=== PATIENT | female | born 1930 | race Caucasian/White ===

== ENCOUNTER 2017-09-26 22:19 | Emergency (ER) | payer MEDICAID, MEDICARE ==
[~2017-09-26] VITALS: Ht 157.5 cm; Wt 45.0 kg
[~2017-09-26 22:19] MED LIST: IBUP100S30 PO; KPHOS250 PO; LOVA20TA PO; TRAM-388 PO; XANA1TAB6 PO
[2017-09-26 22:30] VITALS: BP 187/79; PULSE 74; RESP 20; TEMP 97.2; O2SAT 99
[2017-09-26] MEDS ORDERED: VENTAER INH (22:45)
[2017-09-26] MEDS ORDERED: LOVA40TA PO (22:45)
[2017-09-26] MEDS ORDERED: VITA1000 PO (22:45)
[2017-09-26] MEDS ORDERED: ALPR.5 PO (22:45)
[2017-09-26] MEDS ORDERED: ZANTTAB11 PO (22:45)
--- NOTE | 2017-09-27 00:22 | PD ---
HPI Chief Complaint: Edema Time Seen by Provider: 00:18 Travel History International Travel<30 days: No Contact w/Intl Traveler<30days: No Traveled to known affect area: No History of Present Illness HPI The patient is an 87-year-old female that noticed he has some minimal swelling on her feet. She is wearing socks with a tight constrictive band. She had this problem several weeks ago. She does not have any edema of the leg. She denies any shortness of breath. PFSH Past Medical History Arthritis: Yes (RIGHT KNEE) Asthma: No Autoimmune Disease: No Blood Disorders: No Anxiety: Yes (Xanax daily) Depression: No Heart Rhythm Problems: No Cancer: No Cardiovascular Problems: Yes (did tests ..notmal) High Cholesterol: Yes Chemotherapy: No Chest Pain: No Congestive Heart Failure: No COPD: Yes (continues to smoke) Cerebrovascular Accident: No Diabetes: No Diminished Hearing: Yes (HEARING AIDS BILAT) Endocrine: No Gastrointestinal Disorders: Yes GERD: No Glaucoma: No Genitourinary: No Headaches: No Hepatitis: No Hiatal Hernia: No Hypertension: Yes (PT DENIES) Immune Disorder: No Kidney Stones: No Musculoskeletal: Yes Neurologic: Yes Psychiatric: Yes (anxiety) Reproductive: No Respiratory: Yes (COPD) Migraines: No Myocardial Infarction: No Radiation Therapy: No Renal Failure: No Seizures: No Sleep Apnea: No Thyroid Disease: No Ulcer: No Tetanus Vaccination: Unknown Influenza Vaccination: No ?: Not Menopausal: Yes : 2 Para: 2 Past Surgical History Abdominal Surgery: Yes (HYSTERECTOMY, APPY AND RT HERNIA REPAIR) AICD: No Appendectomy: Yes Arteriovenous Shunt: No Cardiac Surgery: No Cholecystectomy: No Ear Surgery: No Endocrine Surgery: No Eye Surgery: Yes (cataract surgery BILAT) Genitourinary Surgery: No Gynecologic Surgery: Yes (HYSTERECTOMY) Hysterectomy: Yes Insulin Pump: No Joint Replacement: No Oral Surgery: No Pacemaker: No Thoracic Surgery: No Tonsillectomy: Yes Other Surgery: Yes Social History Alcohol Use: No Tobacco Use: Yes (3/4 pack, greater than 60 pack year history) Substance Use: No Allergies-Medications (Allergen,Severity, Reaction): Coded Allergies: No Known Allergies (Verified Adverse Reaction, Unknown, 09/26/17) Reported Meds & Prescriptions Reported Meds & Active Scripts Active Reported Zantac 75 (Ranitidine HCl) 75 Mg Tablet 1 Tab PO BID PRN Ventolin Hfa 18 GM Inh (Albuterol Sulfate) 90 Mcg/Act Aer 2 Puff INH Q4H PRN Vitamin D-1000 (Cholecalciferol) 1,000 Unit Tab 2,000 Units PO BID Lovastatin 40 Mg Tab 40 Mg PO DAILY Xanax (Alprazolam) 0.5 Mg Tab 0.5 Mg PO BID PRN Review of Systems Except as stated in HPI: all other systems reviewed are Neg Physical Exam Narrative GENERAL: Well-nourished, well-developed patient in no apparent distress, specifically no respiratory distress. Her vital signs show blood pressure 187/ 79 but are otherwise normal. SKIN: Focused skin assessment warm/dry. HEAD: Normocephalic. EYES: No scleral icterus. No injection or drainage. NECK: Supple, trachea midline. No JVD or lymphadenopathy. CARDIOVASCULAR: Regular rate and rhythm without murmurs, gallops, or rubs. RESPIRATORY: Breath sounds equal bilaterally. No accessory muscle use. GASTROINTESTINAL: Abdomen soft, non-tender, nondistended. MUSCULOSKELETAL: No cyanosis, and she has good dorsalis pedis pulses bilaterally. There is some swelling below the bands of the socks. I took the socks off and already the swelling is gone down. Homans sign is negative and there is no caffeine tenderness resident or cord palpated in the calf. BACK: Nontender without obvious deformity. No CVA tenderness. Data Data Last Documented VS Vital Signs Date Time Temp Pulse Resp B/P (MAP) Pulse Ox O2 Delivery O2 Flow Rate FiO2 09/26/17 22:30 97.2 74 20 187/79 (115) 99 MDM Medical Decision Making Medical Screen Exam Complete: Yes Emergency Medical Condition: Yes Medical Record Reviewed: Yes Differential Diagnosis Hypoproteinemia-unlikely, congestive heart failure, constrictive effect of socks. Narrative Course The patient's swelling, which is very minimal, appears from the constricting affect of the elastic band on the socks. She will elevate her feet with a socks off. She will not wear socks with constricting bands. Diagnosis Primary Impression: Bilateral swelling of feet Additional Instructions: As we discussed, elevate your feet above your heart and avoid socks with tight constricting elastic bands. Disposition: 01 DISCHARGE HOME Condition: Stable Octavio Mclaughlin MD Sep 27, 2017 00:22
[2017-09-27 00:30] VITALS: BP 170/91
== END 2017-09-27 00:35 | disposition home or self-care (01) ==
LOC: PHED 22:19
DX: R22.43 Localized swelling, mass and lump, lower limb, bilateral (principal); J44.9 Chronic obstructive pulmonary disease, unspecified; E78.00 Pure hypercholesterolemia, unspecified; F41.9 Anxiety disorder, unspecified; F17.210 Nicotine dependence, cigarettes, uncomplicated; Z79.899 Other long term (current) drug therapy
CPT/HCPCS: 99281

== ENCOUNTER 2018-03-18 05:31 | Inpatient (IN) ==
[2018-03-18] MEDS ORDERED: Metoprolol Inj 5 MG/5 ML Vial IV.PUSH ONE (06:03)
[2018-03-18 06:26] LABS: Baso % (Auto) 0.3 % (0.0-2.0); Eos % (Auto) 0.1 % (0.0-4.0); Hematocrit 36.8 % (35.0-46.0); Hemoglobin 12.1 gm/dL (11.6-15.3); Lymph # (Auto) 0.5 th/mm3 (1.0-4.8); Lymph % (Auto) 3.9 % (9.0-44.0); Mean Corpuscular HGB Conc 32.8 % (32.0-36.0); Mean Corpuscular Hemoglobin 27.9 pg (27.0-34.0); Mean Corpuscular Volume 85.2 fL (80.0-100.0); Mean Platelet Volume 8.1 fL (7.0-11.0); Mono % (Auto) 8.9 % (0.0-8.0); Neut # (Auto) 10.1 th/mm3 (1.8-7.7); Neut % (Auto) 86.8 % (16.0-70.0); Platelet Count 209 th/mm3 (150-450); Red Blood Count 4.32 mil/mm3 (4.00-5.30); Red Cell Distribution Width 14.9 % (11.6-17.2); White Blood Count 11.6 th/mm3 (4.0-11.0)
--- NOTE | 2018-03-18 06:35 | ED ---
HPI General Chief complaint: Chest Pain Stated complaint: Chest Pain/Evac Time Seen by Provider: 03/18/18 05:38 History of Present Illness HPI narrative: Patient is an 87-year-old female presents emergency department for evaluation of squeezing chest pain center of her chest started about 130 this morning. No radiation, no shortness of breath no dizziness patient states she has a history of left bundle branch block, no history of atrial fibrillation. He saw a otolaryngology rep once over 5 years ago and has not followed up with them since. He does have a history of COPD and was told that she had a small lesion on her lung which they are just watching. She is a current every day smoker. States is never had a cardiac catheterization before. She is not on anticoagulation. States after. They noted that she was in A. fib RVR, blood pressures in the low 100s systolically prior to arrival and she received 325 mg of aspirin prior to arrival. Related Data Home Medications Medication Instructions Recorded Confirmed albuterol sulfate [Ventolin HFA] 2 puff INHALATION Q6H PRN 03/18/18 03/18/18 alprazolam [Xanax] 0.5 mg PO BID PRN 03/18/18 03/18/18 ranitidine HCl [Zantac] 150 mg PO DAILY 03/18/18 03/18/18 Allergies Allergy/AdvReac Type Severity Reaction Status Date / Time No Known Allergies Unknown Uncoded 09/26/17 22:30 Review of Systems Except as stated in HPI: all other systems reviewed are negative [facility] Medical History Medical History Afib (Acute) Anxiety (Acute) Bundle branch block, left (Acute) COPD (chronic obstructive pulmonary disease) (Acute) GERD (gastroesophageal reflux disease) (Acute) Hiatal hernia (Acute) Surgical History Surgical History H/O abdominal hysterectomy (Acute) H/O right knee surgery (Acute) Social History Social History Substance History: No History of Abuse Second Hand Smoke Exposure: No Smoking Status: Current every day smoker Tobacco Type: Cigarettes How Often Do You Have a Drink Containing Alcohol: Never [facility] within the Last 8 Weeks: No Recent Out of Country Travel within the Last 8 Weeks: No Immunization History Tetanus Immunization: >5 Years Hx Influenza Vaccine This Season: No Exam Narrative Exam Narrative: GENERAL: Well-developed thin elderly female in no obvious distress. Quite pleasant. Smells of cigarette smoke. SKIN: Focused skin assessment warm/dry. HEAD: Atraumatic. Normocephalic. EYES: Pupils equal and round. No scleral icterus. No injection or drainage. ENT: No nasal bleeding or discharge. Mucous membranes pink and moist. NECK: Trachea midline. No JVD. CARDIOVASCULAR: Irregularly irregular with tachycardia. 2+ bilateral equal pulses in all 4 extremities. No murmur appreciated. RESPIRATORY: No accessory muscle use. Clear to auscultation. Breath sounds equal bilaterally. GASTROINTESTINAL: Abdomen soft, non-tender, nondistended. Hepatic and splenic margins not palpable. MUSCULOSKELETAL: No obvious deformities. No clubbing. No cyanosis. There is mild edema bilateral lower extremities. NEUROLOGICAL: Awake and alert. No obvious cranial nerve deficits. Motor grossly within normal limits. Normal speech. PSYCHIATRIC: Appropriate mood and affect; insight and judgment normal. Course Consultations Consultation #1: Dr. Workman Time: 07:54 Initial Documented Vital Signs Pulse Rate 125 H 03/18/18 05:34 Respiratory Rate 20 03/18/18 05:34 Blood Pressure 147/91 H 03/18/18 05:34 Pulse Oximetry 98 03/18/18 05:34 Last Documented Vital Signs Pulse Rate 61 03/18/18 06:35 Respiratory Rate 18 03/18/18 06:35 Blood Pressure 175/80 H 03/18/18 06:35 Pulse Oximetry 97 03/18/18 06:35 Sign Out Sign Out Data: Patient Sign Out occurred on 03/18/18 at 07:06. Patient's care was discussed, and care was transferred from Michael Bower MD to Laurel Perdomo. Sign Out Comment: Discussed with Dr. Perdomo at 0700 shift change. Follow-up laboratory analysis and disposition appropriately. Last updated by Michael Bower MD at 03/18/18 06:46 Post-Handoff Eval: Patient's labs are all now back. Her diagnoses include chest pain, A. fib with RVR controlled with Lopressor, mild CHF and mildly elevated troponin. She is being admitted to the hospitalist service for further evaluation and treatment. Medical Decision Making MDM Narrative Medical decision making narrative: Patient room to the emergency department, has a history of left bundle branch block and currently she is in A. fib RVR with heart rates in the 120s as high as 160. Her chest pain currently is resolved but she describes a very squeezing feeling. She denies a history of atrial fibrillation or congestive heart failure in the past. She was given a dose of Lopressor 2.5 mg IV which controlled her heart rate, blood pressure tolerated well. Chest x-ray does show some mild vascular congestion and edema, does appear to be pleural effusions bilaterally. She was given 20 mg of Lasix as a start. EKG does show atrial fibrillation with left bundle branch block. Does not meet acute STEMI criteria. Differential Diagnosis Differential Diagnosis: A. fib RVR, CHF, ACS, RI. Lab Data Result diagrams: 03/18/18 06:07 03/18/18 06:07 Lab Results 03/18/18 03/18/18 03/18/18 Range/Units 06:00 06:07 06:07 WBC 11.6 H (4.0-11.0) th/mm3 RBC 4.32 (4.00-5.30) mil/mm3 Hgb 12.1 (11.6-15.3) gm/dL Hct 36.8 (35.0-46.0) % MCV 85.2 (80.0-100.0) fL MCH 27.9 (27.0-34.0) pg MCHC 32.8 (32.0-36.0) % RDW 14.9 (11.6-17.2) % Plt Count 209 (150-450) th/mm3 MPV 8.1 (7.0-11.0) fL Neut % (Auto) 86.8 H (16.0-70.0) % Lymph % (Auto) 3.9 L (9.0-44.0) % [place] % (Auto) 8.9 H (0.0-8.0) % Eos % (Auto) 0.1 (0.0-4.0) % Baso % (Auto) 0.3 (0.0-2.0) % Neut # (Auto) 10.1 H (1.8-7.7) th/mm3 Lymph # (Auto) 0.5 L (1.0-4.8) th/mm3 [place] # (Auto) 1.0 H (0.0-0.9) th/mm3 Eos # (Auto) 0.0 (0.0-0.4) th/mm3 Baso # (Auto) 0.0 (0.0-0.2) th/mm3 WBC Differential . Differential Comment Auto diff final PT 10.0 (9.8-11.6) sec INR 1.0 Ratio APTT 19.1 L (24.3-30.1) sec Sodium (136-145) meq/L Potassium (3.5-5.1) meq/L Chloride (98-107) meq/L Carbon Dioxide (21.0-32.0) meq/L Anion Gap (5-15) meq/L BUN (7-18) mg/dL Creatinine (0.50-1.00) mg/dL Estimated GFR (>89) mL/min Random Glucose (74-106) mg/dL Calcium (8.5-10.1) mg/dL Total Bilirubin (0.2-1.0) mg/dL AST (15-37) U/L ALT (10-53) U/L Alkaline Phosphatase (45-117) U/L Troponin I (0.02-0.05) ng/mL B-Natriuretic Peptide 228 H (0-100) pg/mL Total Protein (6.4-8.2) g/dL Albumin (3.4-5.0) g/dL 03/18/18 Range/Units 06:07 WBC (4.0-11.0) th/mm3 RBC (4.00-5.30) mil/mm3 Hgb (11.6-15.3) gm/dL Hct (35.0-46.0) % MCV (80.0-100.0) fL MCH (27.0-34.0) pg MCHC (32.0-36.0) % RDW (11.6-17.2) % Plt Count (150-450) th/mm3 MPV (7.0-11.0) fL Neut % (Auto) (16.0-70.0) % Lymph % (Auto) (9.0-44.0) % [place] % (Auto) (0.0-8.0) % Eos % (Auto) (0.0-4.0) % Baso % (Auto) (0.0-2.0) % Neut # (Auto) (1.8-7.7) th/mm3 Lymph # (Auto) (1.0-4.8) th/mm3 [place] # (Auto) (0.0-0.9) th/mm3 Eos # (Auto) (0.0-0.4) th/mm3 Baso # (Auto) (0.0-0.2) th/mm3 WBC Differential Differential Comment PT (9.8-11.6) sec INR Ratio APTT (24.3-30.1) sec Sodium 140 (136-145) meq/L Potassium 3.5 (3.5-5.1) meq/L Chloride 100 (98-107) meq/L Carbon Dioxide 33.1 H (21.0-32.0) meq/L Anion Gap 7 (5-15) meq/L BUN 31 H (7-18) mg/dL Creatinine 1.19 H (0.50-1.00) mg/dL Estimated GFR 43 L (>89) mL/min Random Glucose 112 H (74-106) mg/dL Calcium 8.9 (8.5-10.1) mg/dL Total Bilirubin 0.5 (0.2-1.0) mg/dL AST 66 H (15-37) U/L ALT 87 H (10-53) U/L Alkaline Phosphatase 95 (45-117) U/L Troponin I 0.09 H (0.02-0.05) ng/mL B-Natriuretic Peptide (0-100) pg/mL Total Protein 6.6 (6.4-8.2) g/dL Albumin 3.1 L (3.4-5.0) g/dL Imaging Data Radiologist's impression: Chest X-Ray 03/18/18 05:37 CONCLUSION: 1. Underlying emphysema and scarring. 2. Mild cardiomegaly Discharge Plan Discharge Disposition Patient Disposition: 30 Still Patient Discharge Details Diagnosis: Chest pain, Atrial fibrillation with RVR, Congestive heart failure, Elevated troponin Physicians Team ED Provider: Laurel Perdomo Primary Care Provider: UNKNOWN, Rxs /Orders / Referrals /Forms Prescriptions: No Action alprazolam [Xanax] 0.5 mg Tablet 0.5 mg PO BID PRN (Reason: Anxiety) RF: 0 ranitidine HCl [Zantac] 150 mg Tablet 150 mg PO DAILY RF: 0 albuterol sulfate [Ventolin HFA] 90 mcg/actuation Hfa Aerosol Inhaler 2 puff INHALATION Q6H PRN (Reason: Shortness Of Breath) RF: 0 Discharge Instructions Patient Printed Instructions: Chest Pain (ED) Discharge Interventions Interventions: Vital Signs Last Done: 03/18/18 06:35 Status ED Status: With Doctor
--- NOTE | 2018-03-18 06:39 | XR ---
EXAM DATE: 03/18/2018 6:16 AM EDT AGE/SEX: 87 years / Female INDICATIONS: Chest pain. CLINICAL DATA: This is the patient's initial encounter. Patient reports that signs and symptoms have been present for 1 day and indicates a pain score of 5/10. MEDICAL/SURGICAL HISTORY: Non-responsive. Non-responsive. COMPARISON: [facility], XR CHEST PA AND LAT, 11/17/2014. . FINDINGS: A single AP erect portable view of the chest was obtained and demonstrates mild cardiomegaly. No conf luent infiltrates or effusions are identified. There is underlying emphysema and scarring. Atheroscle rotic changes present in the aorta. The bony thorax is intact. CONCLUSION: 1. Underlying emphysema and scarring. 2. Mild cardiomegaly Electronically signed by: Greg Marina MD 03/18/2018 6:38 AM EDT
[2018-03-18 06:41] LABS: Activated Partial Thrombo Time 19.1 sec (24.3-30.1)
[2018-03-18 06:57] LABS: Alkaline Phosphatase 95 U/L (45-117); Total Protein 6.6 g/dL (6.4-8.2); Troponin I 0.09 ng/mL (0.02-0.05)
[2018-03-18 07:15] LABS: Alanine Aminotransferase 87 U/L (10-53); Albumin 3.1 g/dL (3.4-5.0); Anion Gap 7 meq/L (5-15); Aspartate Aminotransferase 66 U/L (15-37); Blood Urea Nitrogen 31 mg/dL (7-18); Calcium 8.9 mg/dL (8.5-10.1); Carbon Dioxide 33.1 meq/L (21.0-32.0); Chloride 100 meq/L (98-107); Glomerular Filtration Rate 43 mL/min (>89); Glucose,Random 112 mg/dL (74-106); Potassium 3.5 meq/L (3.5-5.1); Sodium 140 meq/L (136-145)
[2018-03-18] MEDS ORDERED: Acetaminophen 325 MG Tablet PO PRN (09:15)
[2018-03-18] MEDS ORDERED: Bisacodyl 10 MG Supp RECTAL PRN (09:15)
[2018-03-18] MEDS ORDERED: Naloxone Inj 0.4 MG/ML Vial IV.PUSH PRN (09:18)
[2018-03-18] MEDS ORDERED: Morphine Inj 4 MG/ML Vial IV.PUSH PRN ×2 (09:18)
--- NOTE | 2018-03-18 10:43 | P.HPIM ---
History of Present Illness Service: [facility] Primary Care Physician: AILYN AGUIAR Chief Complaint: CHEST PAIN History of Present Illness: Patient is a 87-year-old female presented emergency department for evaluation of chest pain that was squeezing in nature in the center chest that started about 1:30 AM this morning. She denies any radiation, she denies any shortness of breath, she denies any dizziness. She states she has a history of a left bundle branch block. Denies any history of atrial fibrillation. She states she saw a shearing shed hand probably at least 5 years ago. Has not seen one since. Does have a history of COPD and was told that she has a small lesion on her lung which is being followed by pulmonary. She still smokes about a half a pack to three quarters of a pack of tobacco a every day when she presented emergency department she was noted to have atrial fibrillation with RVR. Her blood pressure was in the 100s. And she was given aspirin prior to coming to the hospital since that time she has been given medications which has improved her heart rate.. Past medical history is significant for COPD and asthma and this lung lesion Inpatient Certification: I certify that the inpatient services were ordered in accordance with Medicare regulations governing the order. This includes certification that hospital inpatient services are reasonable and necessary and in the case of services not specified as inpatient-only under 42 CFR 419.22(n), that they are appropriately provided as inpatient services in accordance to with the 2-midnight benchmark under 43 CFR 412.3(e) Estimated Total Length of Stay (Days): 2 Plans for Post Hospital Care: Home Review of Systems All other systems reviewed negative except as stated in HPI [facility] - History History Provided By: Patient - Medical History Medical History: Medical History (Last Updated 03/18/18 @ 10:33 by Noe Workman DO) Afib Anxiety Bundle branch block, left COPD (chronic obstructive pulmonary disease) GERD (gastroesophageal reflux disease) Hiatal hernia Lesion of lung - Surgical History Surgical History: Surgical History (Last Updated 03/18/18 @ 10:35 by Noe Workman DO) H/O abdominal hysterectomy H/O hernia repair H/O right knee surgery History of cataract surgery Hx of appendectomy Hx of tonsillectomy - Family History Family History: Family History (Last Updated 03/18/18 @ 10:33 by Noe Workman DO) Other Family history of hypertension - Tobacco History Second Hand Smoke Exposure: No Tobacco Use In Past 30 Days: Yes Smoking Status: Current every day smoker (Three quarters of a pack every day) Tobacco Type: Cigarettes Packs Per Day: 0.75 Years Smoked: 70 Number of Pack Years (if former smoker): 70 - Alcohol History How Often Do You Have a Drink Containing Alcohol: Never - Substance Use History Substance History: No History of Abuse - Travel History History of Recent Travel: No Recent Travel in the [place] Within the Last 8 Weeks: No Recent Travel Out of the Country Within the Last 8 Weeks: No - Immunization History Tetanus Immunization: >5 Years Hx Influenza Vaccine This Season: No Medications and Allergies Active Medications: Active Medications Acetaminophen (Tylenol) 650 mg PO Q4H PRN PRN Reason: Temp > 100.4 Hydrocodone Bitart/Acetaminophen (Clarion 7.5/325) 1 tab PO Q4H PRN PRN Reason: PAIN SCALE 6 TO 10 Hydrocodone Bitart/Acetaminophen (Clarion 5/325) 1 tab PO Q4H PRN PRN Reason: PAIN SCALE 3 TO 5 Al Hydroxide/Mg Hydroxide (Milk Of Magnesia Liq) 30 ml PO Q12H PRN PRN Reason: Mild Constipation Albuterol (Ventolin Hfa Inh) 2 puff INH Q6H PRN PRN Reason: Shortness Of Breath Alprazolam (Xanax) 0.5 mg PO BID PRN PRN Reason: Anxiety Aspirin (Aspirin Chew) 81 mg PO DAILY SAMANTHA Bisacodyl (Dulcolax Supp) 10 mg RECTAL DAILY PRN PRN Reason: SEVERE CONSITIPATION Enoxaparin Sodium (Lovenox Inj) 100 mg SQ Q12H SAMANTHA Famotidine (Pepcid) 20 mg PO DAILY SAMANTHA Lactulose (Lactulose Liq) 30 ml PO DAILY PRN PRN Reason: SEVERE CONSITIPATION Metoprolol Tartrate (Lopressor) 25 mg PO BID SAMANTHA Morphine Sulfate (Morphine Inj) 2 mg IV.PUSH Q3H PRN PRN Reason: PAIN 3-5; IF UABLE TO TAKE PO Morphine Sulfate (Morphine Inj) 4 mg IV.PUSH Q3H PRN PRN Reason: PAIN 6-10;IF UNABLE TO TAKE PO Naloxone HCl (Narcan Inj) 0.4 mg IV.PUSH UNSCH PRN PRN Reason: SEE LABEL COMMENTS Ondansetron HCl (Zofran Odt) 4 mg SL Q6H PRN PRN Reason: NAUSEA OR VOMITING Senna/Docusate Sodium (Kallie-Colace) 1 tab PO BID [facility] Sennosides (Senokot) 17.2 mg PO Q12H PRN PRN Reason: Moderate Constipation Sodium Chloride (Ns Flush) 2 ml IV.FLUSH UNSCH PRN PRN Reason: FLUSH AFTER USING IV ACCESS Sodium Chloride (Ns Flush) 2 ml IV.FLUSH PRN PRN PRN Reason: FLUSH AFTER USING IV ACCESS Sodium Chloride (Ns Flush) 2 ml IV.FLUSH BID [facility] Allergies Allergy/AdvReac Type Severity Reaction Status Date / Time No Known Allergies Unknown Uncoded 09/26/17 22:30 Home Medications Medication Instructions Recorded Confirmed Type albuterol sulfate [Ventolin HFA] 2 puff INHALATION Q6H PRN 03/18/18 03/18/18 History alprazolam [Xanax] 0.5 mg PO BID PRN 03/18/18 03/18/18 History ranitidine HCl [Zantac] 150 mg PO DAILY 03/18/18 03/18/18 History Exam Vital signs: Vital Signs 03/18/18 05:34 03/18/18 06:16 03/18/18 06:35 Pulse Rate 125 H 61 Respiratory Rate 20 18 Blood Pressure 147/91 H 175/80 H Pulse Oximetry 98 98 97 03/18/18 08:04 Pulse Rate 62 Respiratory Rate 16 Blood Pressure 178/78 H Pulse Oximetry 98 Narrative: GENERAL: Awake alert and oriented 3 talkative and cooperative SKIN: Warm and dry. HEAD: Atraumatic. Normocephalic. EYES: Pupils equal and round. No scleral icterus. No injection or drainage. EOMI ENT: No nasal bleeding or discharge. Mucous membranes pink and moist. Tongue is midline NECK: Trachea midline. No JVD. Supple CARDIOVASCULAR: IRRegular rate and rhythm. S1-S2 no S3 or S4 RESPIRATORY: No accessory muscle use. Clear to auscultation. Breath sounds equal bilaterally. GASTROINTESTINAL: Abdomen soft, non-tender, nondistended. Hepatic and splenic margins not palpable. MUSCULOSKELETAL: Extremities without clubbing, cyanosis, or edema. No obvious deformities. NEUROLOGICAL: Awake and alert. No obvious cranial nerve deficits. Motor grossly within normal limits. 4 out of 5 muscle strength in the arms and legs. Normal speech. PSYCHIATRIC: Appropriate mood and affect; insight and judgment normal. Results - Labs CBC & Chem 7: 03/18/18 06:07 03/18/18 06:07 Labs: Short CBC 03/18/18 Range/Units 06:07 WBC 11.6 H (4.0-11.0) th/mm3 Hgb 12.1 (11.6-15.3) gm/dL Hct 36.8 (35.0-46.0) % Plt Count 209 (150-450) th/mm3 BMP 03/18/18 06:07 Sodium 140 Potassium 3.5 Chloride 100 Carbon Dioxide 33.1 H BUN 31 H Creatinine 1.19 H Calcium 8.9 Cardiac Enzymes 03/18/18 Range/Units 06:07 Troponin I 0.09 H (0.02-0.05) ng/mL Liver Function 03/18/18 Range/Units 06:07 Total Bilirubin 0.5 (0.2-1.0) mg/dL AST 66 H (15-37) U/L ALT 87 H (10-53) U/L Alkaline Phosphatase 95 (45-117) U/L Albumin 3.1 L (3.4-5.0) g/dL - Imaging Impressions Chest X-Ray 03/18/18 05:37 CONCLUSION: 1. Underlying emphysema and scarring. 2. Mild cardiomegaly Caprini VTE Risk Assessment Caprini VTE Risk Assessment: Moderate/High Risk (score >= 2) Caprini Risk Assessment Model: Point Value = 1 Point Value = 2 Point Value = 3 Point Value = 5 Age 41-60 Minor surgery BMI > 25 kg/m2 Swollen legs Varicose veins or History of unexplained or recurrent spontaneous Oral contraceptives or hormone replacement Sepsis (< 1 month) Serious lung disease, including pneumonia (< 1 month) Abnormal pulmonary function Acute myocardial infarction Congestive heart failure (< 1 month) History of inflammatory bowel disease Medical patient at bed rest Age 61-74 Arthroscopic surgery Major open surgery (> 45 min) Laparoscopic surgery (> 45 min) Malignancy Confined to bed (> 72 hours) Immobilizing plaster cast Central venous access Age >= 75 History of VTE Family history of VTE Factor V Leiden Prothrombin [id number] Lupus anticoagulant Anticardiolipin antibodies Elevated serum homocysteine Heparin-induced thrombocytopenia Other congenital or acquired thrombophilia Stroke (< 1 month) Elective arthroplasty Hip, pelvis, or leg fracture Acute spinal cord injury (< 1 month) Prophylaxis Regimen: Total Risk Factor Score Risk Level Prophylaxis Regimen 0-1 Low Early ambulation 2 Moderate Order ONE of the following: *Sequential Compression Device (SCD) *Heparin 5000 units SQ BID 3-4 Higher Order ONE of the following medications: *Heparin 5000 units SQ TID *Enoxaparin/Lovenox 40 mg SQ daily (WT < 150 kg, CrCl > 30 mL/min) *Enoxaparin/Lovenox 30 mg SQ daily (WT < 150 kg, CrCl > 10-29 mL/min) *Enoxaparin/Lovenox 30 mg SQ BID (WT < 150 kg, CrCl > 30 mL/min) AND/OR *Sequential Compression Device (SCD) 5 or more Highest Order ONE of the following medications: *Heparin 5000 units SQ TID (Preferred with Epidurals) *Enoxaparin/Lovenox 40 mg SQ daily (WT < 150 kg, CrCl > 30 mL/min) *Enoxaparin/Lovenox 30 mg SQ daily (WT < 150 kg, CrCl > 10-29 mL/min) *Enoxaparin/Lovenox 30 mg SQ BID (WT < 150 kg, CrCl > 30 mL/min) AND *Sequential Compression Device (SCD) Assessment and Plan - Plan Atrial fibrillation with RVR improved-has positive troponin We will consult cardiology We will get an echocardiogram Trend troponins and cardiac enzymes and EKG make sure she is on aspirin and some Lovenox -Suspect may be secondary to lung disease COPD continue on her breathing treatments that she uses as she needs them We will make Mucinex and duo nebs available Continue on incentive spirometry Suspect the atrial fibrillation may be secondary to her lung disease Recommend smoking cessation since she has been smoking since age 16 and still smokes three quarters of a pack a day Has chronic anxiety continue on Xanax as needed Chronic left bundle branch block will defer to cardiology will get an echo COPD as stated above GERD continue on medications for this as well as her hiatal hernia continue on home medications Mild leukocytosis possibly reactive Renal insufficiency will not give any more Lasix-has already received some by the emergency BNP was only in the 200 Continue DVT prophylaxis with Lovenox GI prophylaxis continue her Zantac or the equivalent PPI As physical therapy to eval and treat Code Status: Full code Discussed Condition With: RN and patient and family and emergency room physician Discharge Planning: Pending cardiac clearance
[2018-03-18] MEDS: guaiFENesin 600 MG ER Tablet PO SCH ×2 (11:36→20:26)
[2018-03-18] MEDS: Famotidine 20 MG Tablet PO SCH (11:36)
[2018-03-18] MEDS: Enoxaparin Inj 100 MG/ML Syringe SQ SCH ×2 (11:39→13:00)
[2018-03-18 12:23] LABS: Troponin I 0.14 ng/mL (0.02-0.05)
[2018-03-18] MEDS ORDERED: Enoxaparin Inj 40 MG/0.4 ML Syringe SQ SCH ×2 (14:00→21:00)
--- NOTE | 2018-03-18 15:31 | P.CONCA ---
<Morelia Moss N - Last Filed: 03/18/18 14:46> History of Present Illness Service: Cardiology Consult date: 03/18/18 Requesting Physician: Noe Workman Reason for Consult: Atrial fibrillation with RVR, borderline troponins Primary Care Provider: UNKNOWN Chief Complaint: CHEST PAIN History of Present Illness: This is a very pleasant 87-year-old female who presented to the emergency department today with complaints of chest pain and shortness of breath since approximately 1:30 AM this morning. She denied any radiation or dizziness during this episode. She has a history of anxiety, left bundle branch block, chronic obstructive pulmonary disease, gastroesophageal reflux disease, hiatal hernia and a lung lesion. Patient states that she has not seen a loop cutter in at least 5 years. She denies any history of atrial fib. Patient states that she does smoke half a pack of cigarettes daily. She has a small lesion on her lung which is being followed by pulmonary. At this time patient denies any chest pain, pressure, palpitations, dizziness or shortness of breath. Patient has also converted back into sinus rhythm per echo. Review of Systems General: Patient denies fevers, chills, and recent travel. HEENT: Patient denies headache, sore throat, difficulty swallowing. Cardiovascular: Patient denies chest pain, dizziness. Denies sensation of heart beating rapidly or irregularly. No syncope. Respiratory: Denies shortness of breath or inspirational chest discomfort. Denies coughing wheezing or hemoptysis. GI: Patient denies nausea, vomiting, diarrhea, abdominal pain, bloody stools. Musculoskeletal: Patient denies joint pain or edema. Denies calf pain or edema. Neurovascular: Patient denies numbness, tingling, weakness in extremities. Denies headache. Endocrine: Denies polyuria and polydipsia. Hematologic: Denies easy bruising. Skin: Denies rash or itching. PMFSH - History History Provided By: Patient - Medical History Medical History: Medical History (Last Reviewed 03/18/18 @ 10:46 by Brooke Gerber) Afib Anxiety Bundle branch block, left COPD (chronic obstructive pulmonary disease) GERD (gastroesophageal reflux disease) Hiatal hernia Lesion of lung - Surgical History Surgical History: Surgical History (Last Reviewed 03/18/18 @ 10:46 by Brooke Gerber) H/O abdominal hysterectomy H/O hernia repair H/O right knee surgery History of cataract surgery Hx of appendectomy Hx of tonsillectomy - Family History Family History: Family History (Last Updated 03/18/18 @ 10:33 by Noe Workman DO) Other Family history of hypertension - Tobacco History Second Hand Smoke Exposure: No Tobacco Use In Past 30 Days: Yes Smoking Status: Current every day smoker (Three quarters of a pack every day) Tobacco Type: Cigarettes Packs Per Day: 0.75 Years Smoked: 70 Number of Pack Years (if former smoker): 70 - Alcohol History How Often Do You Have a Drink Containing Alcohol: Never - Substance Use History Substance History: No History of Abuse - Travel History History of Recent Travel: No Recent Travel in the [place] Within the Last 8 Weeks: No Recent Travel Out of the Country Within the Last 8 Weeks: No - Immunization History Tetanus Immunization: >5 Years Hx Influenza Vaccine This Season: No Medications and Allergies Allergies Allergy/AdvReac Type Severity Reaction Status Date / Time No Known Allergies Unknown Uncoded 09/26/17 22:30 Home Medications Medication Instructions Recorded Confirmed Type albuterol sulfate [Ventolin HFA] 2 puff INHALATION Q6H PRN 03/18/18 03/18/18 History alprazolam [Xanax] 0.5 mg PO BID PRN 03/18/18 03/18/18 History ranitidine HCl [Zantac] 150 mg PO DAILY 03/18/18 03/18/18 History Active Medications: Active Medications Acetaminophen (Tylenol) 650 mg PO Q4H PRN PRN Reason: Temp > 100.4 Hydrocodone Bitart/Acetaminophen (Calder 7.5/325) 1 tab PO Q4H PRN PRN Reason: PAIN SCALE 6 TO 10 Hydrocodone Bitart/Acetaminophen (Calder 5/325) 1 tab PO Q4H PRN PRN Reason: PAIN SCALE 3 TO 5 Al Hydroxide/Mg Hydroxide (Milk Of Magnesia Liq) 30 ml PO Q12H PRN PRN Reason: Mild Constipation Albuterol (Ventolin Hfa Inh) 2 puff INH Q6H PRN PRN Reason: Shortness Of Breath Albuterol (Duoneb Neb (Prn)) 1 ampul NEB Q4HR NEB PRN PRN Reason: SOB WHEEZING Alprazolam (Xanax) 0.5 mg PO BID PRN PRN Reason: Anxiety Aspirin (Aspirin Chew) 81 mg PO DAILY [facility] Last Admin: 03/18/18 10:31 Dose: Not Given Bisacodyl (Dulcolax Supp) 10 mg RECTAL DAILY PRN PRN Reason: SEVERE CONSITIPATION Enoxaparin Sodium (Lovenox Inj) 40 mg SQ BID [facility] Famotidine (Pepcid) 20 mg PO DAILY [facility] Last Admin: 03/18/18 11:36 Dose: 20 mg Guaifenesin (Mucinex Er) 600 mg PO BID [facility] Last Admin: 03/18/18 11:36 Dose: Not Given Lactulose (Lactulose Liq) 30 ml PO DAILY PRN PRN Reason: SEVERE CONSITIPATION Metoprolol Tartrate (Lopressor) 25 mg PO BID [facility] Morphine Sulfate (Morphine Inj) 2 mg IV.PUSH Q3H PRN PRN Reason: PAIN 3-5; IF UABLE TO TAKE PO Morphine Sulfate (Morphine Inj) 4 mg IV.PUSH Q3H PRN PRN Reason: PAIN 6-10;IF UNABLE TO TAKE PO Naloxone HCl (Narcan Inj) 0.4 mg IV.PUSH UNSCH PRN PRN Reason: SEE LABEL COMMENTS Ondansetron HCl (Zofran Odt) 4 mg SL Q6H PRN PRN Reason: NAUSEA OR VOMITING Senna/Docusate Sodium (Kallie-Colace) 1 tab PO BID [facility] Sennosides (Senokot) 17.2 mg PO Q12H PRN PRN Reason: Moderate Constipation Sodium Chloride (Ns Flush) 2 ml IV.FLUSH PRN PRN PRN Reason: FLUSH AFTER USING IV ACCESS Sodium Chloride (Ns Flush) 2 ml IV.FLUSH BID [facility] Exam Vital signs: Vital Signs 03/18/18 05:34 03/18/18 06:16 03/18/18 06:35 Pulse Rate 125 H 61 Respiratory Rate 20 18 Blood Pressure 147/91 H 175/80 H Pulse Oximetry 98 98 97 03/18/18 08:04 03/18/18 09:15 03/18/18 12:00 Pulse Rate 62 66 72 Respiratory Rate 16 16 16 Blood Pressure 178/78 H 189/89 H 187/82 H Pulse Oximetry 98 98 97 Narrative: GENERAL: Patient in no apparent distress. Patient speaks in clear complete sentences. Patient is pleasant. HEENT: Head is atraumatic and normocephalic. Neck is supple without lymphadenopathy and trachea is midline. No JVD or carotid bruits. CARDIOVASCULAR: Regular rate and rhythm without murmurs, gallops, or rubs. RESPIRATORY: Clear to auscultation. Breath sounds equal bilaterally. No wheezes , rales, or rhonchi. Chest wall is nontender. No use of accessory muscles. GASTROINTESTINAL: Abdomen is nontender, nondistended. Abdomen soft. No obvious pulsatile mass or bruit. No CVA tenderness. Strong femoral pulses bilaterally. Normal bowel sounds in all quadrants. MUSCULOSKELETAL: Patient is moving upper and lower extremities freely. No calf tenderness or edema, no Homans sign. Strong pulses in upper and lower extremities. NEUROLOGICAL: Patient is alert and oriented. Cranial nerves 2-12 are grossly intact. No focal deficits and speech is clear. SKIN: No rash and turgor is normal. Results 03/18/18 06:07 03/18/18 06:07 Cardiac Enzymes 03/18/18 03/18/18 03/18/18 Range/Units 06:00 06:07 11:30 AST 66 H (15-37) U/L Troponin I 0.09 H 0.14 H (0.02-0.05) ng/mL B-Natriuretic Peptide 228 H (0-100) pg/mL Coagulation 03/18/18 03/18/18 Range/Units 06:00 06:07 PT 10.0 (9.8-11.6) sec APTT 19.1 L (24.3-30.1) sec B-Natriuretic Peptide 228 H (0-100) pg/mL CBC 03/18/18 Range/Units 06:07 WBC 11.6 H (4.0-11.0) th/mm3 RBC 4.32 (4.00-5.30) mil/mm3 Hgb 12.1 (11.6-15.3) gm/dL Hct 36.8 (35.0-46.0) % Plt Count 209 (150-450) th/mm3 Neut # (Auto) 10.1 H (1.8-7.7) th/mm3 Lymph # (Auto) 0.5 L (1.0-4.8) th/mm3 Sibley # (Auto) 1.0 H (0.0-0.9) th/mm3 Eos # (Auto) 0.0 (0.0-0.4) th/mm3 Baso # (Auto) 0.0 (0.0-0.2) th/mm3 Comprehensive Metabolic Panel 03/18/18 Range/Units 06:07 Sodium 140 (136-145) meq/L Potassium 3.5 (3.5-5.1) meq/L Chloride 100 (98-107) meq/L Carbon Dioxide 33.1 H (21.0-32.0) meq/L BUN 31 H (7-18) mg/dL Creatinine 1.19 H (0.50-1.00) mg/dL Calcium 8.9 (8.5-10.1) mg/dL AST 66 H (15-37) U/L ALT 87 H (10-53) U/L Alkaline Phosphatase 95 (45-117) U/L Total Protein 6.6 (6.4-8.2) g/dL Albumin 3.1 L (3.4-5.0) g/dL EKG interpretations - EKG EKG shows: atrial fibrillation - Dysrhythmias Supraventricular dysrhythmia: atrial fibrillation Assessment and Plan - Assessment (1) Chest pain Code(s): R07.9 - Chest pain, unspecified Status: Acute (2) Atrial fibrillation with RVR Code(s): I48.91 - Unspecified atrial fibrillation Status: Acute (3) Congestive heart failure Code(s): I50.9 - Heart failure, unspecified Status: Acute (4) Elevated troponin Code(s): R74.8 - Abnormal levels of other serum enzymes Status: Acute - Plan Patient currently denies chest pain, shortness of breath, dizziness, palpitations or pressure. 2D echo being performed in the room shows that patient has converted back into sinus rhythm at a controlled rate and left ventricular function has been preserved. Elevation of cardiac marker troponin is most likely in relationship to the atrial fibrillation. Ordered a second set of troponin levels along with a 12-lead EKG. Will start Eliquis 2.5 mg PO twice daily first dose given tonight and will DC the Lovenox. We will continue with current cardiac treatment plan. Will follow patient during hospitalization and have patient follow-up in office after discharge. The treatment plan discussed with patient and daughter. The patient was seen and evaluated by Dr. Nunes who participated in care, management and decision-making. <Hammad Nunes - Last Filed: 03/18/18 16:53> History of Present Illness Primary Care Provider: UNKNOWN [facility] - Medical History Medical History: Medical History (Last Reviewed 03/18/18 @ 10:46 by Brooke Gerber) Afib Anxiety Bundle branch block, left COPD (chronic obstructive pulmonary disease) GERD (gastroesophageal reflux disease) Hiatal hernia Lesion of lung - Surgical History Surgical History: Surgical History (Last Reviewed 03/18/18 @ 10:46 by Brooke Gerber) H/O abdominal hysterectomy H/O hernia repair H/O right knee surgery History of cataract surgery Hx of appendectomy Hx of tonsillectomy - Family History Family History: Family History (Last Updated 03/18/18 @ 10:33 by Noe Workman DO) Other Family history of hypertension Medications and Allergies Active Medications: Active Medications Acetaminophen (Tylenol) 650 mg PO Q4H PRN PRN Reason: Temp > 100.4 Hydrocodone Bitart/Acetaminophen (Calder 7.5/325) 1 tab PO Q4H PRN PRN Reason: PAIN SCALE 6 TO 10 Hydrocodone Bitart/Acetaminophen (Calder 5/325) 1 tab PO Q4H PRN PRN Reason: PAIN SCALE 3 TO 5 Al Hydroxide/Mg Hydroxide (Milk Of Magnesia Liq) 30 ml PO Q12H PRN PRN Reason: Mild Constipation Albuterol (Ventolin Hfa Inh) 2 puff INH Q6H PRN PRN Reason: Shortness Of Breath Albuterol (Duoneb Neb (Prn)) 1 ampul NEB Q4HR NEB PRN PRN Reason: SOB WHEEZING Alprazolam (Xanax) 0.5 mg PO BID PRN PRN Reason: Anxiety Apixaban (Eliquis) 2.5 mg PO BID [facility] Aspirin (Aspirin Chew) 81 mg PO DAILY [facility] Last Admin: 03/18/18 10:31 Dose: Not Given Bisacodyl (Dulcolax Supp) 10 mg RECTAL DAILY PRN PRN Reason: SEVERE CONSITIPATION Famotidine (Pepcid) 20 mg PO DAILY [facility] Last Admin: 03/18/18 11:36 Dose: 20 mg Guaifenesin (Mucinex Er) 600 mg PO BID [facility] Last Admin: 03/18/18 11:36 Dose: Not Given Lactulose (Lactulose Liq) 30 ml PO DAILY PRN PRN Reason: SEVERE CONSITIPATION Metoprolol Tartrate (Lopressor) 25 mg PO BID [facility] Morphine Sulfate (Morphine Inj) 2 mg IV.PUSH Q3H PRN PRN Reason: PAIN 3-5; IF UABLE TO TAKE PO Morphine Sulfate (Morphine Inj) 4 mg IV.PUSH Q3H PRN PRN Reason: PAIN 6-10;IF UNABLE TO TAKE PO Naloxone HCl (Narcan Inj) 0.4 mg IV.PUSH UNSCH PRN PRN Reason: SEE LABEL COMMENTS Ondansetron HCl (Zofran Odt) 4 mg SL Q6H PRN PRN Reason: NAUSEA OR VOMITING Senna/Docusate Sodium (Kallie-Colace) 1 tab PO BID [facility] Sennosides (Senokot) 17.2 mg PO Q12H PRN PRN Reason: Moderate Constipation Sodium Chloride (Ns Flush) 2 ml IV.FLUSH PRN PRN PRN Reason: FLUSH AFTER USING IV ACCESS Sodium Chloride (Ns Flush) 2 ml IV.FLUSH BID [facility] Exam Vital signs: Vital Signs 03/18/18 05:34 03/18/18 06:16 03/18/18 06:35 Pulse Rate 125 H 61 Respiratory Rate 20 18 Blood Pressure 147/91 H 175/80 H Pulse Oximetry 98 98 97 03/18/18 08:04 03/18/18 09:15 03/18/18 12:00 Pulse Rate 62 66 72 Respiratory Rate 16 16 16 Blood Pressure 178/78 H 189/89 H 187/82 H Pulse Oximetry 98 98 97 Results 03/18/18 06:07 03/18/18 06:07 Cardiac Enzymes 03/18/18 03/18/18 03/18/18 Range/Units 06:00 06:07 11:30 AST 66 H (15-37) U/L Troponin I 0.09 H 0.14 H (0.02-0.05) ng/mL B-Natriuretic Peptide 228 H (0-100) pg/mL Coagulation 03/18/18 03/18/18 Range/Units 06:00 06:07 PT 10.0 (9.8-11.6) sec APTT 19.1 L (24.3-30.1) sec B-Natriuretic Peptide 228 H (0-100) pg/mL CBC 03/18/18 Range/Units 06:07 WBC 11.6 H (4.0-11.0) th/mm3 RBC 4.32 (4.00-5.30) mil/mm3 Hgb 12.1 (11.6-15.3) gm/dL Hct 36.8 (35.0-46.0) % Plt Count 209 (150-450) th/mm3 Neut # (Auto) 10.1 H (1.8-7.7) th/mm3 Lymph # (Auto) 0.5 L (1.0-4.8) th/mm3 Sibley # (Auto) 1.0 H (0.0-0.9) th/mm3 Eos # (Auto) 0.0 (0.0-0.4) th/mm3 Baso # (Auto) 0.0 (0.0-0.2) th/mm3 Comprehensive Metabolic Panel 03/18/18 Range/Units 06:07 Sodium 140 (136-145) meq/L Potassium 3.5 (3.5-5.1) meq/L Chloride 100 (98-107) meq/L Carbon Dioxide 33.1 H (21.0-32.0) meq/L BUN 31 H (7-18) mg/dL Creatinine 1.19 H (0.50-1.00) mg/dL Calcium 8.9 (8.5-10.1) mg/dL AST 66 H (15-37) U/L ALT 87 H (10-53) U/L Alkaline Phosphatase 95 (45-117) U/L Total Protein 6.6 (6.4-8.2) g/dL Albumin 3.1 L (3.4-5.0) g/dL Assessment and Plan - Assessment (1) Chest pain Code(s): R07.9 - Chest pain, unspecified Status: Acute (2) Atrial fibrillation with RVR Code(s): I48.91 - Unspecified atrial fibrillation Status: Acute (3) Congestive heart failure Code(s): I50.9 - Heart failure, unspecified Status: Acute (4) Elevated troponin Code(s): R74.8 - Abnormal levels of other serum enzymes Status: Acute - Attending Attestation Patient seen and examined. I reviewed and agree with the evaluation and plan as presented. Echo shows well preserved LV systolic function. Anticoagulation with Eliquis started for paroxysmal AF. Continue current program. <Morelia Moss - Last Filed: 03/18/18 14:46> (1) Chest pain Qualifiers: Chest pain type: unspecified Qualified Code(s): R07.9 - Chest pain, unspecified (3) Congestive heart failure Qualifiers: Heart failure type: unspecified Heart failure chronicity: acute Qualified Code(s): I50.9 - Heart failure, unspecified <Hammad Nunes - Last Filed: 03/18/18 16:53> (1) Chest pain Qualifiers: Chest pain type: unspecified Qualified Code(s): R07.9 - Chest pain, unspecified (3) Congestive heart failure Qualifiers: Heart failure type: unspecified Heart failure chronicity: acute Qualified Code(s): I50.9 - Heart failure, unspecified
--- NOTE | 2018-03-18 16:50 | ECHRPT ---
Indication: HYPERTENSIVE HEART DISEASE CONCLUSIONS Normal left ventricular size. Mild concentric left ventricular hypertrophy. The left ventricular systolic function is normal with an estimated ejection fraction in the range of 65%. Mild mitral valve regurgitation. Trace aortic valve regurgitation. The estimated pulmonary arterial pressure is 40 mmHg. There is mild tricuspid valve regurgitation. Mild pulmonary valve regurgitation. BP: / HR: Rhythm: Sinus MEASUREMENTS (Male / Female) Normal Values Technical Quality:Fair 2D ECHO LV Diastolic Diameter PLAX 4.0 cm 4.2 - 5.9 / 3.9 - 5.3 cm LV Systolic Diameter PLAX 2.5 cm IVS Diastolic Thickness 1.1 cm 0.6 - 1.0 / 0.6 - 0.9 cm LVPW Diastolic Thickness 1.0 cm 0.6 - 1.0 / 0.6 - 0.9 cm LV Relative Wall Thickness 0.5 RV Internal Dim ED PLAX 1.5 cm LVOT Diameter 1.9 cm Aortic Root Diameter 2.8 cm LA Systolic Diameter LX 2.1 cm 3.0 - 4.0 / 2.7 - 3.8 cm M-MODE AV Cusp Separation MM 1.4 cm DOPPLER AV Peak Velocity 114.0 cm/s AV Peak Gradient 5.2 mmHg AV Mean Gradient 3.0 mmHg AV Velocity Time Integral 27.0 cm LVOT Peak Velocity 93.2 cm/s LVOT Peak Gradient 3.5 mmHg LVOT Velocity Time Integral 15.8 cm AV Area Cont Eq vti 1.7 cm AV Area Cont Eq pk 2.3 cm Mitral E Point Velocity 92.3 cm/s Mitral A Point Velocity 100.0 cm/s Mitral E to A Ratio 0.9 LV E' Lateral Velocity 3.2 cm/s Mitral E to LV E' Lateral Ratio 28.7 LV E' Septal Velocity 3.6 cm/s Mitral E to LV E' Septal Ratio 25.6 TR Peak Velocity 274.0 cm/s TR Peak Gradient 30.0 mmHg Right Atrial Pressure 10.0 mmHg Pulmonary Artery Systolic Pressu 40.0 mmHg Right Ventricular Systolic Press 40.0 mmHg PV Peak Velocity 88.0 cm/s PV Peak Gradient 3.1 mmHg FINDINGS LEFT VENTRICLE Normal left ventricular size. Mild concentric left ventricular hypertrophy. The left ventricular systolic function is normal with an estimated ejection fraction in the range of 65%. RIGHT VENTRICLE Normal right ventricular size and systolic function. LEFT ATRIUM The left atrial size is normal. RIGHT ATRIUM The right atrial size is normal. ATRIAL SEPTUM No atrial level shunt is demonstrated by color flow Doppler interrogation. AORTA The aortic root and proximal ascending aorta are not well visualized. MITRAL VALVE Mild mitral valve regurgitation. AORTIC VALVE Trileaflet aortic valve. Trace aortic valve regurgitation. TRICUSPID VALVE The estimated pulmonary arterial pressure is 40 mmHg. There is mild tricuspid valve regurgitation. PULMONARY VALVE Mild pulmonary valve regurgitation. VESSELS The inferior vena cava was not well visualized. PERICARDIUM No pericardial effusion. Hammad Nunes MD, FACC (Electronically Signed) Final Date:18 March 2018 16:49
--- NOTE | 2018-03-18 17:09 | ECG ---
Date Performed: 03/18/2018 Time Performed: 05:42:30 PTAGE: 87 years EKG: ATRIAL FIBRILLATION WITH RAPID VENTRICULAR RESPONSE INFERIOR MYOCARDIAL INFARCTION ANTEROSE PTAL MYOCARDIAL INFARCTION-ACUTE DC Compared to PREVIOUS TRACING , patient is now in AF with RVR and maybe be having an acute STEMI DOCTOR: Yoli Main Interpretating Date/Time 03/18/2018 17:07:08
[2018-03-18 17:55] LABS: Troponin I 0.13 ng/mL (0.02-0.05)
[2018-03-18] MEDS: ALPRAZolam 0.5 MG Tablet PO PRN (19:53)
[2018-03-18] MEDS: Senna/Docusate Sodium 8.6/50 MG Tablet PO SCH (20:26)
[2018-03-18] MEDS: Metoprolol Tartrate 25 MG Tablet PO SCH (20:26)
[2018-03-19 00:21] LABS: Bilirubin,Urine Negative (Negative); Clarity,Urine Clear (Clear); Color,Urine Straw (Yellw/Straw); Glucose,Urine (UA) Negative (Negative); Leukocyte Esterase,Urine Trace (Negative); Mucus,Urine Few /lpf (Occasional); Nitrite,Urine Negative (Negative); Specific Gravity,Urine 1.008 (1.002-1.035); Squamous Epithelial Cell,Urine <1 /hpf (0-5)
[2018-03-19 05:57] LABS: Hematocrit 40.1 % (35.0-46.0); Hemoglobin 13.3 gm/dL (11.6-15.3); Lymph # (Auto) 0.7 th/mm3 (1.0-4.8); Mean Corpuscular HGB Conc 33.1 % (32.0-36.0); Mean Corpuscular Volume 84.7 fL (80.0-100.0); Mean Platelet Volume 7.7 fL (7.0-11.0); Mono # (Auto) 0.9 th/mm3 (0.0-0.9); Mono % (Auto) 6.6 % (0.0-8.0); Neut # (Auto) 11.4 th/mm3 (1.8-7.7); Neut % (Auto) 88.4 % (16.0-70.0); Platelet Count 257 th/mm3 (150-450); Red Blood Count 4.73 mil/mm3 (4.00-5.30); Red Cell Distribution Width 14.8 % (11.6-17.2)
[2018-03-19 06:08] LABS: Prothrombin Time 10.6 sec (9.8-11.6)
[2018-03-19 06:29] LABS: Alanine Aminotransferase 106 U/L (10-53); Albumin 3.4 g/dL (3.4-5.0); Alkaline Phosphatase 104 U/L (45-117); Anion Gap 8 meq/L (5-15); Aspartate Aminotransferase 85 U/L (15-37); Blood Urea Nitrogen 31 mg/dL (7-18); Calcium 9.1 mg/dL (8.5-10.1); Carbon Dioxide 35.3 meq/L (21.0-32.0); Chloride 93 meq/L (98-107); Chol/HDL Ratio 1.86 Ratio; Cholesterol 202 mg/dL (120-200); Free T4 (Free Thyroxine) 1.08 ng/dL (0.76-1.46); Glomerular Filtration Rate 42 mL/min (>89); Glucose,Random 100 mg/dL (74-106); HDL Cholesterol 108.2 mg/dL (40.0-60.0); LDL Cholesterol,Calculated 73 mg/dL (0-99); Magnesium 2.3 mg/dL (1.5-2.5); Phosphorus 3.4 mg/dL (2.5-4.9); Sodium 136 meq/L (136-145); Thyroid Stimulating Hormone 0.309 uIU/mL (0.358-3.740); Total Protein 7.2 g/dL (6.4-8.2); Triglycerides 106 mg/dL (42-150)
[2018-03-19 06:55] LABS: Potassium 2.8 meq/L (3.5-5.1)
[2018-03-19] MEDS: ALPRAZolam 0.5 MG Tablet PO PRN ×2 (07:40→18:20)
[2018-03-19] MEDS: Metoprolol Tartrate 25 MG Tablet PO SCH ×2 (08:29→20:50)
[2018-03-19] MEDS: Famotidine 20 MG Tablet PO SCH (08:29)
[2018-03-19] MEDS: Senna/Docusate Sodium 8.6/50 MG Tablet PO SCH ×2 (08:29→20:49)
[2018-03-19] MEDS: guaiFENesin 600 MG ER Tablet PO SCH ×2 (08:29→20:50)
--- NOTE | 2018-03-19 10:38 | P.PNCA ---
<Morelia Moss N - Last Filed: 03/19/18 10:21> Subjective Interval history: General: Patient denies fevers, chills, and recent travel. HEENT: Patient denies headache, sore throat, difficulty swallowing. Cardiovascular: Patient denies chest pain, dizziness. Denies sensation of heart beating rapidly or irregularly. No syncope. Respiratory: Denies shortness of breath or inspirational chest discomfort. Denies coughing wheezing or hemoptysis. GI: Patient denies nausea, vomiting, diarrhea, abdominal pain, bloody stools. Musculoskeletal: Patient denies joint pain or edema. Denies calf pain or edema. Neurovascular: Patient denies numbness, tingling, weakness in extremities. Denies headache. Endocrine: Denies polyuria and polydipsia. Hematologic: Complains of increased bruising. Skin: Denies rash or itching. Physical Exam Vital signs: Vital Signs 03/18/18 12:00 03/18/18 19:00 03/18/18 20:00 Temperature 97.7 F Pulse Rate 72 68 84 Respiratory Rate 16 18 Blood Pressure 187/82 H 140/58 L Pulse Oximetry 97 94 L 03/18/18 20:15 03/19/18 00:00 03/19/18 00:10 Temperature 97.9 F Pulse Rate 65 90 54 L Respiratory Rate 18 Blood Pressure 138/59 L Pulse Oximetry 95 03/19/18 04:00 03/19/18 07:00 03/19/18 08:00 Temperature 98.0 F 98.1 F 97.3 F L Pulse Rate 74 62 55 L Respiratory Rate 16 14 19 Blood Pressure 126/63 158/92 H 201/83 H Pulse Oximetry 95 94 L 96 03/19/18 09:00 Temperature Pulse Rate 72 Respiratory Rate Blood Pressure Pulse Oximetry Intake & Output 03/18/18 03/19/18 03/19/18 18:59 06:59 18:59 Intake Total 580 / 580 Balance 580 / 580 Weight 42.7 kg Intake: Oral 480 / 480 Oral Supplement 100 / 100 Other: Post Void Residual 400 Date of Last Bowel Movement 03/18/18 Narrative: GENERAL: This is a well-nourished, well-developed patient, in no apparent distress. Patient speaks in clear complete sentences. Patient is pleasant. HEENT: Head is atraumatic and normocephalic. Neck is supple without lymphadenopathy and trachea is midline. No JVD or carotid bruits. CARDIOVASCULAR: Regular rate and rhythm without murmurs, gallops, or rubs. RESPIRATORY: Clear to auscultation. Breath sounds equal bilaterally. No wheezes , rales, or rhonchi. Chest wall is nontender. No use of accessory muscles. GASTROINTESTINAL: Abdomen is nontender, nondistended. Abdomen soft. No obvious pulsatile mass or bruit. No CVA tenderness. Strong femoral pulses bilaterally. Normal bowel sounds in all quadrants. MUSCULOSKELETAL: Patient is moving upper and lower extremities freely. No calf tenderness or edema, no Homans sign. Strong pulses in upper and lower extremities. NEUROLOGICAL: Patient is alert and oriented. Cranial nerves 2-12 are grossly intact. No focal deficits and speech is clear. SKIN: No rash and turgor is normal. Patient has multiple bruises on hands and forearms bilaterally. Assessment and Plan - Assessment (1) Chest pain Code(s): R07.9 - Chest pain, unspecified Status: Acute (2) Atrial fibrillation with RVR Code(s): I48.91 - Unspecified atrial fibrillation Status: Acute (3) Congestive heart failure Code(s): I50.9 - Heart failure, unspecified Status: Acute (4) Elevated troponin Code(s): R74.8 - Abnormal levels of other serum enzymes Status: Acute - Plan Patient currently denies chest pain, shortness of breath, dizziness, palpitations or pressure. Patient currently in sinus rhythm. Potassium level is 2.8, ordered 40meq potassium p.o. now then 20 meq p.o. daily, recheck potassium level in the morning. Discontinued aspirin. We will continue with current cardiac treatment plan. Will follow patient during hospitalization and have patient follow-up in office after discharge. The treatment plan discussed with patient and daughter. The patient was seen and evaluated by Dr. Nunes who participated in care, management and decision-making. <Hammad Nunes - Last Filed: 03/19/18 13:53> Physical Exam Vital signs: Vital Signs 03/18/18 19:00 03/18/18 20:00 03/18/18 20:15 Temperature 97.7 F Pulse Rate 68 84 65 Respiratory Rate 18 Blood Pressure 140/58 L Pulse Oximetry 94 L 03/19/18 00:00 03/19/18 00:10 08/02/18 04:00 Temperature 97.9 F 98.0 F Pulse Rate 90 54 L 74 Respiratory Rate 18 16 Blood Pressure 138/59 L 126/63 Pulse Oximetry 95 95 03/19/18 07:00 03/19/18 08:00 03/19/18 09:00 Temperature 98.1 F 97.3 F L Pulse Rate 62 55 L 72 Respiratory Rate 14 19 Blood Pressure 158/92 H 201/83 H Pulse Oximetry 94 L 96 03/19/18 12:00 Temperature 97.0 F L Pulse Rate 58 L Respiratory Rate 18 Blood Pressure 150/65 H Pulse Oximetry 94 L Intake & Output 03/18/18 03/19/18 03/19/18 18:59 06:59 18:59 Intake Total 580 / 580 Balance 580 / 580 Weight 94 lb 2.198 oz Intake: Oral 480 / 480 Oral Supplement 100 / 100 Other: Post Void Residual 400 Date of Last Bowel Movement 03/18/18 Assessment and Plan - Assessment (1) Chest pain Code(s): R07.9 - Chest pain, unspecified Status: Acute (2) Atrial fibrillation with RVR Code(s): I48.91 - Unspecified atrial fibrillation Status: Acute (3) Congestive heart failure Code(s): I50.9 - Heart failure, unspecified Status: Acute (4) Elevated troponin Code(s): R74.8 - Abnormal levels of other serum enzymes Status: Acute - Attending Attestation Patient seen and examined. I reviewed and agree with the evaluation and plan as presented. Continue anticoagulation with Eliquis for AF. Replace K. Anticipate discharge soon. Will schedule outpt f/u in our office after discharge. <Morelia Moss N - Last Filed: 03/19/18 10:21> (1) Chest pain Qualifiers: Chest pain type: unspecified Qualified Code(s): R07.9 - Chest pain, unspecified (3) Congestive heart failure Qualifiers: Heart failure type: unspecified Heart failure chronicity: acute Qualified Code(s): I50.9 - Heart failure, unspecified <Hammad Nunes - Last Filed: 03/19/18 13:53> (1) Chest pain Qualifiers: Chest pain type: unspecified Qualified Code(s): R07.9 - Chest pain, unspecified (3) Congestive heart failure Qualifiers: Heart failure type: unspecified Heart failure chronicity: acute Qualified Code(s): I50.9 - Heart failure, unspecified
--- NOTE | 2018-03-19 11:41 | P.PNIM ---
Subjective Interval history: f/u afib back in [place], no chest pain, palpitations or SOB, did not sleep well and more confused today than yesterday Physical Exam Vital signs: Vital Signs 03/18/18 12:00 03/18/18 19:00 03/18/18 20:00 Temperature 97.7 F Pulse Rate 72 68 84 Respiratory Rate 16 18 Blood Pressure 187/82 H 140/58 L Pulse Oximetry 97 94 L 03/18/18 20:15 03/19/18 00:00 03/19/18 00:10 Temperature 97.9 F Pulse Rate 65 90 54 L Respiratory Rate 18 Blood Pressure 138/59 L Pulse Oximetry 95 03/19/18 04:00 03/19/18 07:00 03/19/18 08:00 Temperature 98.0 F 98.1 F 97.3 F L Pulse Rate 74 62 55 L Respiratory Rate 16 14 19 Blood Pressure 126/63 158/92 H 201/83 H Pulse Oximetry 95 94 L 96 03/19/18 09:00 Temperature Pulse Rate 72 Respiratory Rate Blood Pressure Pulse Oximetry Intake & Output 03/18/18 03/19/18 03/19/18 18:59 06:59 18:59 Intake Total 580 / 580 Balance 580 / 580 Weight 42.7 kg Intake: Oral 480 / 480 Oral Supplement 100 / 100 Other: Post Void Residual 400 Date of Last Bowel Movement 03/18/18 Narrative: GENERAL: Not in distress CARDIOVASCULAR: Regular rate and rhythm. S1-S2 no S3 or S4 RESPIRATORY: No accessory muscle use. Clear to auscultation. Breath sounds equal bilaterally. GASTROINTESTINAL: Abdomen soft, non-tender, nondistended. Hepatic and splenic margins not palpable. MUSCULOSKELETAL: Extremities without clubbing, cyanosis, or edema. No obvious deformities. NEUROLOGICAL: Awake , alert, oriented to self and time but not to place. Mildly confused. No obvious cranial nerve deficits. Motor grossly within normal limits. 4 out of 5 muscle strength in the arms and legs. Normal speech. Results - Labs CBC & Chem 7: 03/19/18 04:57 03/19/18 04:57 Laboratory Results - last 24 hr 03/18/18 03/18/18 03/18/18 11:30 17:03 23:03 WBC RBC Hgb Hct MCV MCH MCHC RDW Plt Count MPV Neut % (Auto) Lymph % (Auto) [place] % (Auto) Eos % (Auto) Baso % (Auto) Neut # (Auto) Lymph # (Auto) [place] # (Auto) Eos # (Auto) Baso # (Auto) WBC Differential Differential Comment PT INR Sodium Potassium Chloride Carbon Dioxide Anion Gap BUN Creatinine Estimated GFR Random Glucose Calcium Phosphorus Magnesium Total Bilirubin AST ALT Alkaline Phosphatase Total Creatine Kinase 112 139 Troponin I 0.14 H 0.13 H 0.14 H Total Protein Albumin Triglycerides Cholesterol LDL Cholesterol, Calc HDL Cholesterol Cholesterol/HDL Ratio TSH Free T4 Urine Color Urine Clarity Urine pH Ur Specific [place] Urine Protein Urine Glucose (UA) Urine Ketones Urine Occult Blood Urine Nitrate Urine Bilirubin Urine Urobilinogen Ur Leukocyte Esterase Urine RBC Urine WBC Ur Squamous Epith Cells Urine Mucus Micro UA Comment Urine Culture Comments 03/19/18 03/19/18 03/19/18 00:00 04:57 04:57 WBC 13.0 H RBC 4.73 Hgb 13.3 Hct 40.1 MCV 84.7 MCH 28.0 MCHC 33.1 RDW 14.8 Plt Count 257 MPV 7.7 Neut % (Auto) 88.4 H Lymph % (Auto) 5.0 L [place] % (Auto) 6.6 Eos % (Auto) 0.0 Baso % (Auto) 0.0 Neut # (Auto) 11.4 H Lymph # (Auto) 0.7 L [place] # (Auto) 0.9 Eos # (Auto) 0.0 Baso # (Auto) 0.0 WBC Differential . Differential Comment Auto diff final PT 10.6 INR 1.0 Sodium Potassium Chloride Carbon Dioxide Anion Gap BUN Creatinine Estimated GFR Random Glucose Calcium Phosphorus Magnesium Total Bilirubin AST ALT Alkaline Phosphatase Total Creatine Kinase Troponin I Total Protein Albumin Triglycerides Cholesterol LDL Cholesterol, Calc HDL Cholesterol Cholesterol/HDL Ratio TSH Free T4 Urine Color Straw Urine Clarity Clear Urine pH 6.[address] [place] 1.008 Urine Protein Negative Urine Glucose (UA) Negative Urine Ketones Negative Urine Occult Blood Negative Urine Nitrate Negative Urine Bilirubin Negative Urine Urobilinogen Less than 2 Ur Leukocyte Esterase Trace H Urine RBC Less than 1 Urine WBC 1 Ur Squamous Epith Cells <1 Urine Mucus Few H Micro UA Comment Culture not ind Urine Culture Comments Culture not ind 03/19/18 04:57 WBC RBC Hgb Hct MCV MCH MCHC RDW Plt Count MPV Neut % (Auto) Lymph % (Auto) [place] % (Auto) Eos % (Auto) Baso % (Auto) Neut # (Auto) Lymph # (Auto) [place] # (Auto) Eos # (Auto) Baso # (Auto) WBC Differential Differential Comment PT INR Sodium 136 Potassium 2.8 L* Chloride 93 L Carbon Dioxide 35.3 H Anion Gap 8 BUN 31 H Creatinine 1.20 H Estimated GFR 42 L Random Glucose 100 Calcium 9.1 Phosphorus 3.4 Magnesium 2.3 Total Bilirubin 0.8 AST 85 H ALT 106 H Alkaline Phosphatase 104 Total Creatine Kinase Troponin I Total Protein 7.2 D Albumin 3.4 Triglycerides 106 Cholesterol 202 H LDL Cholesterol, Calc 73 HDL Cholesterol 108.2 H Cholesterol/HDL Ratio 1.86 TSH 0.309 L Free T4 1.08 Urine Color Urine Clarity Urine pH Ur Specific [place] Urine Protein Urine Glucose (UA) Urine Ketones Urine Occult Blood Urine Nitrate Urine Bilirubin Urine Urobilinogen Ur Leukocyte Esterase Urine RBC Urine WBC Ur Squamous Epith Cells Urine Mucus Micro UA Comment Urine Culture Comments Assessment and Plan - Plan Atrial fibrillation with RVR improved-has positive troponin, cardiology following, back in [place], started on eliquis -Suspect may be secondary to lung disease. TTE showed preserved EF COPD - continue on her breathing treatments, stable, Mucinex Chronic left bundle branch block - cardiology following Mild leukocytosis - possibly reactive Renal insufficiency - stable, recheck BMP Hypokalemia - replace, check Mg Insomnia - restoril Continue DVT prophylaxis with Lovenox Pending cardiac clearance.
[2018-03-19 12:20] VITALS: RESP 18
[2018-03-19] MEDS ORDERED: Temazepam 15 MG Capsule PO PRN (14:51)
[2018-03-19 16:28] LABS: Hemoglobin A1c 6.1 % (4.3-6.0)
--- NOTE | 2018-03-19 16:30 | ECG ---
Date Performed: 03/18/2018 Time Performed: 16:00:14 PTAGE: 87 years EKG: Sinus rhythm WITH OCCASIONAL SUPRAVENTRICULAR PREMATURE COMPLEXES POSSIBLE LEFT ATRIAL ENLARGEMENT MARKED LEFT AX IS DEVIATION LEFT BUNDLE BRANCH BLOCK ABNORMAL ECG PREVIOUS TRACING : 03/18/2018 05.42 Sinus rhythm replaces atrial fibrillation otherwise largelu unchanged. DOCTOR: Michael Capone Interpretating Date/Time 03/19/2018 16:29:17
[2018-03-19 17:48] LABS: Calcium 9.1 mg/dL (8.5-10.1); Carbon Dioxide 33.4 meq/L (21.0-32.0); Potassium 3.3 meq/L (3.5-5.1)
[2018-03-20] MEDS: ALPRAZolam 0.5 MG Tablet PO PRN (04:23)
[2018-03-20 05:29] VITALS: O2SAT 94
[2018-03-20 07:52] LABS: Calcium 8.8 mg/dL (8.5-10.1); Carbon Dioxide 32.9 meq/L (21.0-32.0)
[2018-03-20] MEDS: Famotidine 20 MG Tablet PO SCH (08:05)
[2018-03-20] MEDS: Metoprolol Tartrate 25 MG Tablet PO SCH (08:07)
[2018-03-20] MEDS: Senna/Docusate Sodium 8.6/50 MG Tablet PO SCH (08:07)
[2018-03-20] MEDS: guaiFENesin 600 MG ER Tablet PO SCH (08:08)
[2018-03-20] MEDS ORDERED: Potassium Chlor 20 mEq Premix 20 MEQ/100 ML PIGGYBACK IV.SIG ONE (09:00)
[2018-03-20] MEDS ORDERED: ALPRAZolam 0.5 MG Tablet PO PRN ×2 (10:15→21:00)
--- NOTE | 2018-03-20 10:20 | P.PNIM ---
Subjective Interval history: Patient more confused today. Remains in sinus rhythm, denies any chest pain or palpitations. She recognizes that she is a little bit foggy and confused but oriented. She takes Xanax 0.5 mg 3 times a day, sometimes 6 times a day. No urinary symptoms, afebrile. Would like to go home. Patient's son is coming to accompany her at home on discharge for the next few days. Physical Exam Vital signs: Vital Signs 03/19/18 12:00 03/19/18 16:00 03/19/18 19:45 Temperature 97.0 F L 96.9 F L Pulse Rate 58 L 57 L 82 Respiratory Rate 18 18 Blood Pressure 150/65 H 120/61 Pulse Oximetry 94 L 93 L 03/19/18 20:00 03/19/18 23:55 03/20/18 00:00 Temperature 98.2 F 97.3 F L Pulse Rate 72 64 56 L Respiratory Rate 18 18 Blood Pressure 146/98 H 155/70 H Pulse Oximetry 95 95 03/20/18 02:45 03/20/18 04:00 03/20/18 08:00 Temperature 97.3 F L 97.9 F Pulse Rate 82 57 L 61 Respiratory Rate 18 18 Blood Pressure 177/74 H 170/79 H Pulse Oximetry 94 L 94 L Intake & Output 03/19/18 03/20/18 03/20/18 18:59 06:59 18:59 Intake Total 480 / 480 480 / 480 Balance 480 / 480 480 / 480 Weight 42.6 kg Intake: Oral 480 / 480 480 / 480 Other: # Voids 3 3 Date of Last Bowel Movement 03/18/18 03/19/18 # Bowel Movements 0 1 Narrative: GENERAL: Not in distress CARDIOVASCULAR: Regular rate and rhythm. S1-S2 no S3 or S4 RESPIRATORY: No accessory muscle use. Clear to auscultation. Breath sounds equal bilaterally. GASTROINTESTINAL: Abdomen soft, non-tender, nondistended. Hepatic and splenic margins not palpable. MUSCULOSKELETAL: Extremities without clubbing, cyanosis, or edema. No obvious deformities. NEUROLOGICAL: Awake , alert, oriented to self place, month and year. Mildly foggy and forgetful but not really confused. No obvious cranial nerve deficits. Motor grossly within normal limits. 4 out of 5 muscle strength in the arms and legs. Normal speech. Results - Labs CBC & Chem 7: 03/19/18 04:57 03/20/18 06:08 Laboratory Results - last 24 hr 03/19/18 03/19/18 03/20/18 04:57 16:50 06:08 Sodium 137 135 L Potassium 3.3 L 3.0 L Chloride 94 L 93 L Carbon Dioxide 33.4 H 32.9 H Anion Gap 10 9 BUN 35 H 41 H Creatinine 1.17 H 1.34 H Estimated GFR 44 L 37 L Random Glucose 98 122 H Hemoglobin A1c 6.1 H Calcium 9.1 8.8 Assessment and Plan - Plan This is an 87-year-old female who initially presented with chest pain found to be in atrial fibrillation. Atrial fibrillation with RVR improved-has positive troponin, cardiology following, back in [place], started on eliquis -Suspect may be secondary to lung disease. TTE showed preserved EF Toxic metabolic encephalopathy versus delirium-patient is foggy but not overtly confused. She is alert awake and oriented. Very forgetful. To be mild withdrawal from nicotine versus Xanax? Increase Xanax to home dose of 0.5 mg 3 times a day and start nicotine patch. COPD - continue on her breathing treatments, stable, Mucinex Chronic left bundle branch block - cardiology following Hypertension-on metoprolol, continue per home dose, uncontrolled, start Norvasc. Mild leukocytosis - possibly reactive Renal insufficiency - stable, stable. Hypokalemia - replace, magnesium within normal limits. Insomnia -extra dose of Xanax tonight. Continue DVT prophylaxis with Lovenox Pending cardiac clearance and improvement of confusion. Per daughter, she is okay with taking the patient home mildly confused. She agrees that reorientation may help with her confusion. Rule out UTI, check urinalysis.
--- NOTE | 2018-03-20 10:36 | P.PNCA ---
<Morleia Moss N - Last Filed: 03/20/18 10:22> Subjective Interval history: General: Patient denies fevers, chills, and recent travel. HEENT: Patient denies headache, sore throat, difficulty swallowing. Cardiovascular: Complains of dizziness when getting up and turning around. Also sees little white spots. Denies chest pain. Denies sensation of heart beating rapidly or irregularly. No syncope. Respiratory: Denies shortness of breath or inspirational chest discomfort. Denies coughing wheezing or hemoptysis. GI: Patient denies nausea, vomiting, diarrhea, abdominal pain, bloody stools. Musculoskeletal: Patient denies joint pain or edema. Denies calf pain or edema. Neurovascular: Patient denies numbness, tingling, weakness in extremities. Denies headache. Endocrine: Denies polyuria and polydipsia. Hematologic: Denies easy bruising. Skin: Denies rash or itching. Physical Exam Vital signs: Vital Signs 03/19/18 12:00 03/19/18 16:00 03/19/18 19:45 Temperature 97.0 F L 96.9 F L Pulse Rate 58 L 57 L 82 Respiratory Rate 18 18 Blood Pressure 150/65 H 120/61 Pulse Oximetry 94 L 93 L 03/19/18 20:00 03/19/18 23:55 03/20/18 00:00 Temperature 98.2 F 97.3 F L Pulse Rate 72 64 56 L Respiratory Rate 18 18 Blood Pressure 146/98 H 155/70 H Pulse Oximetry 95 95 03/20/18 02:45 03/20/18 04:00 03/20/18 08:00 Temperature 97.3 F L 97.9 F Pulse Rate 82 57 L 61 Respiratory Rate 18 18 Blood Pressure 177/74 H 170/79 H Pulse Oximetry 94 L 94 L Intake & Output 03/19/18 03/20/18 03/20/18 18:59 06:59 18:59 Intake Total 480 / 480 480 / 480 Balance 480 / 480 480 / 480 Weight 42.6 kg Intake: Oral 480 / 480 480 / 480 Other: # Voids 3 3 Date of Last Bowel Movement 03/18/18 03/19/18 # Bowel Movements 0 1 Narrative: GENERAL: Patient in no apparent distress. Patient speaks in clear complete sentences. Patient is pleasant. HEENT: Head is atraumatic and normocephalic. Neck is supple without lymphadenopathy and trachea is midline. No JVD or carotid bruits. CARDIOVASCULAR: Regular rate and rhythm without murmurs, gallops, or rubs. RESPIRATORY: Clear to auscultation. Breath sounds equal bilaterally. No wheezes , rales, or rhonchi. Chest wall is nontender. No use of accessory muscles. GASTROINTESTINAL: Abdomen is nontender, nondistended. Abdomen soft. No obvious pulsatile mass or bruit. No CVA tenderness. Strong femoral pulses bilaterally. Normal bowel sounds in all quadrants. MUSCULOSKELETAL: Patient is moving upper and lower extremities freely. No calf tenderness or edema, no Homans sign. Strong pulses in upper and lower extremities. NEUROLOGICAL: Patient is alert and mildly confused. Cranial nerves 2-12 are grossly intact. No focal deficits and speech is clear. SKIN: No rash and turgor is normal. Multiple bruises noted on hands and forearms. Assessment and Plan - Assessment (1) Chest pain Code(s): R07.9 - Chest pain, unspecified Status: Acute (2) Atrial fibrillation with RVR Code(s): I48.91 - Unspecified atrial fibrillation Status: Acute (3) Congestive heart failure Code(s): I50.9 - Heart failure, unspecified Status: Acute (4) Elevated troponin Code(s): R74.8 - Abnormal levels of other serum enzymes Status: Acute - Plan Patient currently denies chest pain, shortness of breath, palpitations or pressure. Complains of dizziness when she turns around or stands up to quickly. Patient currently in sinus rhythm. Potassium level is 3.0, 20 meq p.o. daily, recheck potassium level in the morning. Increasing confusion, consulted Neurology to evaluate. We will continue with current cardiac treatment plan. Will follow patient during hospitalization and have patient follow-up in office after discharge. The treatment plan discussed with patient and daughter. The patient was seen and evaluated by Dr. Nunes who participated in care, management and decision-making. <Hammad Nunes - Last Filed: 03/20/18 12:53> Physical Exam Vital signs: Vital Signs 03/19/18 16:00 03/19/18 19:45 03/19/18 20:00 Temperature 96.9 F L 98.2 F Pulse Rate 57 L 82 72 Respiratory Rate 18 18 Blood Pressure 120/61 146/98 H Pulse Oximetry 93 L 95 03/19/18 23:55 03/20/18 00:00 03/20/18 02:45 Temperature 97.3 F L Pulse Rate 64 56 L 82 Respiratory Rate 18 Blood Pressure 155/70 H Pulse Oximetry 95 03/20/18 04:00 03/20/18 08:00 03/20/18 10:49 Temperature 97.3 F L 97.9 F Pulse Rate 57 L 61 Respiratory Rate 18 18 Blood Pressure 177/74 H 170/79 H Pulse Oximetry 94 L 94 L 96 Intake & Output 03/19/18 03/20/18 03/20/18 18:59 06:59 18:59 Intake Total 480 / 480 480 / 480 / Balance 480 / 480 480 / 480 / Weight 93 lb 14.671 oz Intake: IV 20 / 20 KCl 20 mEq Premix Inj 20 meq In 20 / 20 100 ml @ 50 mls/hr IV.SIG ONCE ONE Rx#:[id number] Oral 480 / 480 480 / 480 Other: # Voids 3 3 Date of Last Bowel Movement 03/18/18 03/19/18 # Bowel Movements 0 1 Assessment and Plan - Assessment (1) Chest pain Code(s): R07.9 - Chest pain, unspecified Status: Acute (2) Atrial fibrillation with RVR Code(s): I48.91 - Unspecified atrial fibrillation Status: Acute (3) Congestive heart failure Code(s): I50.9 - Heart failure, unspecified Status: Acute (4) Elevated troponin Code(s): R74.8 - Abnormal levels of other serum enzymes Status: Acute - Attending Attestation Patient seen and examined. I reviewed and agree with the evaluation and plan as presented. Patient is mildly confused; stable from cardiac standpoint. Anticipate discharge home. Will schedule outpatient f/u in our office after discharge. D/w pt's daughter. <Morelia Moss - Last Filed: 03/20/18 10:22> (1) Chest pain Qualifiers: Chest pain type: unspecified Qualified Code(s): R07.9 - Chest pain, unspecified (3) Congestive heart failure Qualifiers: Heart failure type: unspecified Heart failure chronicity: acute Qualified Code(s): I50.9 - Heart failure, unspecified <Hammad Nunes - Last Filed: 03/20/18 12:53> (1) Chest pain Qualifiers: Chest pain type: unspecified Qualified Code(s): R07.9 - Chest pain, unspecified (3) Congestive heart failure Qualifiers: Heart failure type: unspecified Heart failure chronicity: acute Qualified Code(s): I50.9 - Heart failure, unspecified
[2018-03-20 10:46] LABS: Bilirubin,Urine Negative (Negative); Clarity,Urine Clear (Clear); Color,Urine Yellow (Yellw/Straw); Glucose,Urine (UA) Negative (Negative); Leukocyte Esterase,Urine Trace (Negative); Mucus,Urine Few /lpf (Occasional); Nitrite,Urine Negative (Negative); Specific Gravity,Urine 1.012 (1.002-1.035); Squamous Epithelial Cell,Urine <1 /hpf (0-5)
[2018-03-20] MEDS ORDERED: amLODIPine 5 MG Tablet PO SCH (11:00)
[2018-03-20] MEDS ORDERED: POTASSIUM CHLORIDE IV.SIG ONE ×2 (13:00)
[2018-03-20] MEDS ORDERED: DEXTROSE 5% IV.SIG ONE ×2 (13:00)
[2018-03-20] MEDS ORDERED: WATER IV.SIG ONE ×2 (13:00)
--- NOTE | 2018-03-20 14:35 | MB ---
cc: Fatimah Velazquez MD DATE: 03/20/2018 DATE OF : 1930 AGE: [age] years old. REASON FOR CONSULTATION: Change in mental status, confusion. HISTORY OF PRESENT ILLNESS: This is a pleasant 87-year-old woman who comes in with chest pain to the ED, found to have atrial fibrillation, I believe with RVR. Neurology is asked to see her for ongoing confusion. The patient's risk factors are heart disease, she is a smoker about half pack a day for a number of years. PAST MEDICAL HISTORY: History of anxiety, left bundle branch block, COPD, reflux, hiatal hernia, lesion of the lung. History-kothari atrial fibrillation is unclear. PAST SURGICAL HISTORY: Hysterectomy, hernia repair, right knee surgery, cataracts, appendectomy, tonsillectomy. SOCIAL HISTORY: She is a smoker, as stated "half pack to quarter pack" for at least 70 years. She does not drink. No abuse of substances. Lives alone. PHYSICAL EXAMINATION: VITAL SIGNS: Temperature is 97.6, pulse 54, respiratory rate 18, blood pressure 181/72, saturating 95% on room air. GENERAL: She is actually on her feet when we came into the room using a walker. NEUROLOGICAL EXAMINATION: She is awake is alert. She knows she is at [place]. She knows the city, the county, the state. She knew it was March, but was not sure if it was or Friday, she stated . She was not sure of the date. Her speech otherwise is fluent. Follows commands. Pupils reactive. Face is symmetric. Tongue is midline. Motor-kothari, she seems to move everything equally for her age but a little unsteady ambulating. She does use a cane versus a walker at home. There is no lateralizing weakness. LABORATORY DATA: White count is a little bit elevated at 13, neutrophils 88.4%. Coag panel unremarkable. Chemistries: Sodium is 135, potassium is 3, BUN 41, creatinine 1.34, GFR 37, glucose 122. Her hemoglobin A1c is 6.1. Cholesterol 202, LDL 73, HDL 108.2, triglycerides 106. TSH was a bit low at 0.309. Urine unremarkable. IMAGING STUDIES: No imaging studies as far as scan of the head. IMPRESSION: Some mild confusion. May be due to her atrial fibrillation with rapid ventricular response versus electrolyte imbalance versus mild case of dementia that has been undiagnosed. PLAN: We will go ahead and order an EEG, get some vitamin levels, B1, B6, B12, magnesium, folic acid, ammonia and add an MRI. Continue current care. If her workup is unremarkable from our perspective, certainly she can be discharged home with followup as an outpatient and possibly considering starting her on some medicine for her memory. At this point, we will not start anything while in the hospital. Further recommendations to be made as needed. MD CHARLIE Manning/SYL , 02:17 PM , 02:26 PM
--- NOTE | 2018-03-20 14:55 | P.DS ---
Date of admission: 03/18/18 07:54 Primary care physician: UNKNOWN Brief History from admission: Patient is a 87-year-old female presented emergency department for evaluation of chest pain that was squeezing in nature in the center chest that started about 1:30 AM this morning. She denies any radiation, she denies any shortness of breath, she denies any dizziness. She states she has a history of a left bundle branch block. Denies any history of atrial fibrillation. She states she saw a collating machine operator probably at least 5 years ago. Has not seen one since. Does have a history of COPD and was told that she has a small lesion on her lung which is being followed by pulmonary. She still smokes about a half a pack to three quarters of a pack of tobacco a every day when she presented emergency department she was noted to have atrial fibrillation with RVR. Her blood pressure was in the 100s. And she was given aspirin prior to coming to the hospital since that time she has been given medications which has improved her heart rate.. Past medical history is significant for COPD and asthma and this lung lesion DS: Diagnosis - Discharge Diagnosis (1) Chest pain Status: Acute (2) Atrial fibrillation with RVR Status: Acute (3) Congestive heart failure Status: Acute DS: Medications - Discharge Medications Prescriptions: amlodipine [Norvasc] 5 mg PO DAILY #30 tab potassium chloride 20 meq PO DAILY #5 tab DS: Summary Hospital Course: This is an 87-year-old female who presented emergency department with chest pain. Patient was found to have atrial fibrillation, cardiology was consulted. No further diagnostics done by cardiology, patient went back to sinus rhythm, she was started on Eliquis. Echocardiogram was done which showed ejection fraction. Her blood pressures also been elevated hence she was started on. Her hospitalization was complicated with mild confusion which was thought to be secondary to mild Xanax withdrawal. Urinalysis was negative. After potassium replacement, the patient was discharged. - Time Spent with Patient Total time spent providing and/or coordinating discharge services: Greater than 30 minutes Exam Vital signs: Vital Signs 03/19/18 16:00 03/19/18 19:45 03/19/18 20:00 Temperature 96.9 F L 98.2 F Pulse Rate 57 L 82 72 Respiratory Rate 18 18 Blood Pressure 120/61 146/98 H Pulse Oximetry 93 L 95 03/19/18 23:55 03/20/18 00:00 03/20/18 02:45 Temperature 97.3 F L Pulse Rate 64 56 L 82 Respiratory Rate 18 Blood Pressure 155/70 H Pulse Oximetry 95 03/20/18 04:00 03/20/18 08:00 03/20/18 10:49 Temperature 97.3 F L 97.9 F Pulse Rate 57 L 61 Respiratory Rate 18 18 Blood Pressure 177/74 H 170/79 H Pulse Oximetry 94 L 94 L 96 03/20/18 12:00 Temperature 97.6 F Pulse Rate 54 L Respiratory Rate 18 Blood Pressure 181/72 H Pulse Oximetry 95 Intake & Output 03/19/18 03/20/18 03/20/18 18:59 06:59 18:59 Intake Total 480 / 480 480 / 480 20 / 20 Balance 480 / 480 480 / 480 20 / 20 Weight 42.6 kg Intake: IV 20 / 20 KCl 20 mEq Premix Inj 20 meq In 20 / 20 100 ml @ 50 mls/hr IV.SIG ONCE ONE Rx#:[id number] Oral 480 / 480 480 / 480 Other: # Voids 3 3 Date of Last Bowel Movement 03/18/18 03/19/18 03/19/18 # Bowel Movements 0 1 Results Procedures completed during hospitalization: none Labs on day of discharge: Labs from last 24 hours 03/20/18 03/20/18 03/20/18 10:04 06:08 06:08 Sodium 135 L Potassium 3.0 L Chloride 93 L Carbon Dioxide 32.9 H Anion Gap 9 BUN 41 H Creatinine 1.34 H Estimated GFR 37 L Random Glucose 122 H Hemoglobin A1c Calcium 8.8 Magnesium 2.4 Urine Color Yellow Urine Clarity Clear Urine pH 6.0 Ur Specific [place] 1.012 Urine Protein Negative Urine Glucose (UA) Negative Urine Ketones Negative Urine Occult Blood Negative Urine Nitrate Negative Urine Bilirubin Negative Urine Urobilinogen Less than 2 Ur Leukocyte Esterase Trace H Urine RBC Less than 1 Urine WBC 1 Ur Squamous Epith Cells <1 Urine Mucus Few H Micro UA Comment Culture not ind Urine Culture Comments Culture not ind 03/19/18 03/19/18 16:50 04:57 Sodium 137 Potassium 3.3 L Chloride 94 L Carbon Dioxide 33.4 H Anion Gap 10 BUN 35 H Creatinine 1.17 H Estimated GFR 44 L Random Glucose 98 Hemoglobin A1c 6.1 H Calcium 9.1 Magnesium Urine Color Urine Clarity Urine pH Ur Specific [place] Urine Protein Urine Glucose (UA) Urine Ketones Urine Occult Blood Urine Nitrate Urine Bilirubin Urine Urobilinogen Ur Leukocyte Esterase Urine RBC Urine WBC Ur Squamous Epith Cells Urine Mucus Micro UA Comment Urine Culture Comments - Impressions ITS Impressions Chest X-Ray 03/18/18 05:37 CONCLUSION: 1. Underlying emphysema and scarring. 2. Mild cardiomegaly Discharge Plan - Discharge Disposition Patient Disposition: Disch /Home Health Service - Discharge Condition Condition: Good - Discharge Order Discharge Orders: Discharge Order (Routine); Ordered 03/20/18 Ordered By: Corina Hamilton - Discharge Details Anticipated Discharge Date: 03/20/18 Discharge Comment: d/c if K is better at 3 pm - Physicians Team Primary Care Provider: UNKNOWN, Attending Provider: Corina Hamilton Other Providers: Hammad Nunes MD
--- NOTE | 2018-03-20 17:02 | MG ---
cc: Fatimah Velazquez MD EEG NUMBER: [id number] CLINICAL HISTORY: Room 1408, awake with photic stimulation. EEG in 2012 showed some mild slowing. An 87-year-old woman admitted with atrial fibrillation with RVR, some change in mental status, confusion. Currently on Norvasc, Eliquis, Vasotec. DESCRIPTION OF RECORD: There is quite a bit of artifact. She is talking, but overall background shows some mild slowing of 6-7 Hz, ___ voltage but overall symmetrical background, fairly well organized. EKG is artifactual, cannot be interpreted by 1 lead. Hyperventilation was not done. Photic stimulation does elicit a posterior driving response. IMPRESSION: Mild slowing of background can be seen with medicine effect as well as a mild dementia process, as well as a mild encephalopathic process. There is no evidence of any epileptiform features in this recording. Fatimah Velazquez MD DF/MOHAMUD , 04:46 PM , 04:52 PM
--- NOTE | 2018-03-20 17:19 | MR ---
EXAM DATE: 03/20/2018 4:59 PM EDT AGE/SEX: 87 years / Female INDICATIONS: Confusion. CLINICAL DATA: This is the patient's initial encounter. Patient reports that signs and symptoms have been present for 1 day and indicates a pain score of 0/10. MEDICAL/SURGICAL HISTORY: Chronic obstructive pulmonary disease. Hysterectomy. Umbilical herni a repair. Right knee surgery. COMPARISON: No prior exams available for comparison. TECHNIQUE: Multiplanar, multisequence examination of the brain was performed without contrast. FINDINGS: Cerebrum: The ventricles are normal for age. No evidence of midline shift, mass lesion, hemorrhage or acute infarction. No extraaxial fluid collections are seen. The pituitary gland and suprasellar cistern are normal in configuration. Multiple small foci of magnetic susceptibility artifact, primari ly in the right parietal lobe likely represents chronic microhemorrhage. White Matter: Prominent symmetric periventricular white matter hyperintensity and getting chronic sm all vessel ischemic change. Posterior Fossa: Chronic ischemic changes noted in the ronda and central cerebellum. Diffusion Imaging: No focal areas of restricted diffusion are seen. No evidence of acute infarction . Extracranial: The visualized portions of the orbits and paranasal sinuses are unremarkable. Heteroge neous bone marrow signal in the visualized portions of the cervical spine vertebral bodies. CONCLUSION: 1. Chronic ischemic change and age-related change. No acute intracranial findings. 2. Markedly heterogeneous bone marrow signal visualized portions of the cervical spine vertebral bod ies. 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 Recommend follow-up cervical spine MRI w ith and without contrast if this has not been previously evaluated. Electronically signed by: Guido Oshea MD 03/20/2018 5:18 PM EDT
[2018-03-20 18:43] LABS: Calcium 8.7 mg/dL (8.5-10.1); Carbon Dioxide 33.2 meq/L (21.0-32.0); Magnesium 2.2 mg/dL (1.5-2.5); Potassium 4.3 meq/L (3.5-5.1)
[2018-03-20 19:11] LABS: Folate 12.4 ng/mL (3.1-17.5)
[2018-03-20] MEDS ORDERED: Metoprolol Tartrate 25 MG Tablet PO SCH (21:00)
[2018-03-20] MEDS ORDERED: Metoprolol Tartrate 50 MG Tablet PO SCH (21:00)
[2018-03-24 18:10] VITALS: BP 187/75; PULSE 65; TEMP 97.4
== END 2018-03-20 19:42 | disposition home or self-care (01) ==
LOC: NEPC 05:31 → NEDA 07:54 → N04 13:50
PROVIDERS: ADMIT Hospitalist; ATTEND Hospitalist